=== PATIENT | male | born 1975 | race Caucasian/White ===

== ENCOUNTER 2017-01-10 10:17 | Emergency (ER) | payer MEDICAID ==
[2017-01-10 10:59] LABS: BASOPHIL % 0.2 % (0-2); PLATELET COUNT 316 x10^3mcL (130-400); RED CELL DISTRIBUTION WIDTH 13.7 % (11.5-14.5)
[2017-01-10 11:10] LABS: CALCIUM 8.9 mg/dL (8.5-10.1); CARBON DIOXIDE 28.8 mmol/L (21-32); CHLORIDE SERUM 106 mmol/L (98-107); CREATININE SERUM 1.1 mg/dL (0.7-1.3); GFR1 > 60 mL/min; GLUCOSE SERUM 104 mg/dL (74-106); POTASSIUM SERUM 4.3 mmol/L (3.5-5.1); SODIUM SERUM 141 mmol/L (136-145)
[2017-01-10 11:15] LABS: ALBUMIN 3.6 g/dL (3.4-5.0); ALKALINE PHOSPHATASE 54 U/L (46-116); ALT/SGPT 44 U/L (16-63); AMYLASE 37 U/L (25-115); AST/SGOT 27 U/L (15-37); BILIRUBIN TOTAL 0.28 mg/dL (0.20-1.00); LIPASE 197 IU/L (73-393); TOTAL PROTEIN, SERUM 7.1 g/dL (6.4-8.2)
[2017-01-10 12:43] VITALS: BP 106/60
== END 2017-01-10 12:43 | disposition home or self-care (01) ==
LOC: ED 10:17
PROVIDERS: Emergency Medicine
DX: K62.5 Hemorrhage of anus and rectum (principal); I10 Essential (primary) hypertension
CPT/HCPCS: 36415; 83880; J1885

== ENCOUNTER 2017-03-22 00:35 | Emergency (ER) | payer MEDICAID ==
[~2017-03-22] VITALS: Ht 172.7 cm; Wt 135.2 kg
[2017-03-22 00:41] VITALS: Ht 172.7 cm; Wt 135.2 kg
[2017-03-22 03:18] LABS: CALCIUM 9.4 mg/dL (8.5-10.1); CARBON DIOXIDE 26.3 mmol/L (21-32); CHLORIDE SERUM 106 mmol/L (98-107); CREATININE SERUM 0.9 mg/dL (0.7-1.3); GFR1 > 60 mL/min; GLUCOSE SERUM 116 mg/dL (74-106); POTASSIUM SERUM 3.8 mmol/L (3.5-5.1); SODIUM SERUM 142 mmol/L (136-145)
[2017-03-22 03:21] LABS: BASOPHIL % 1.1 % (0-2); PLATELET COUNT 324 x10^3mcL (130-400); RED CELL DISTRIBUTION WIDTH 11.9 % (11.5-14.5)
[2017-03-22 03:22] LABS: ALKALINE PHOSPHATASE 87 U/L (46-116); ALT/SGPT 65 U/L (16-63); AST/SGOT 23 U/L (15-37); BILIRUBIN TOTAL 0.26 mg/dL (0.20-1.00); LIPASE 167 IU/L (73-393); TOTAL PROTEIN, SERUM 6.8 g/dL (6.4-8.2)
[2017-03-22 03:23] LABS: ALBUMIN 3.2 g/dL (3.4-5.0)
[2017-03-22 06:58] VITALS: BP 125/83
[2017-03-22] MEDS ORDERED: ZESTRIL40 MG PO (21:29)
[2017-03-22] MEDS ORDERED: TENORMIN100 MG PO (21:29)
[2017-03-22] MEDS ORDERED: SEROQUEL25 MG PO (21:30)
[2017-03-22] MEDS ORDERED: VITAMIN B121000 MCG PO (21:30)
[2017-03-22] MEDS ORDERED: FENOFIBRATE54 M1 PO (21:30)
[2017-03-22] MEDS ORDERED: [UNRECOGNIZED DRUG - CODE] PO (21:30)
[2017-03-22] MEDS ORDERED: HEALTHY HEART1 EACH PO (21:31)
== END 2017-03-22 06:59 | disposition home or self-care (01) ==
LOC: ED 00:35
PROVIDERS: Emergency Medicine
DX: K80.80 Other cholelithiasis without obstruction (principal); I10 Essential (primary) hypertension; E78.00 Pure hypercholesterolemia, unspecified; Z87.19 Personal history of other diseases of the digestive system
CPT/HCPCS: 83880; J2270; J2405; Q0092

== ENCOUNTER 2017-03-22 15:17 | Inpatient (IN) | payer MEDICAID ==
[~2017-03-22] VITALS: Ht 172.7 cm; Wt 135.8 kg
[2017-03-22 16:26] LABS: BASOPHIL % 0.5 % (0-2); PLATELET COUNT 318 x10^3mcL (130-400); RED CELL DISTRIBUTION WIDTH 12.5 % (11.5-14.5)
[2017-03-22 16:46] LABS: microscopic required? NO
[2017-03-22 16:50] LABS: CARBON DIOXIDE 25.4 mmol/L (21-32); CHLORIDE SERUM 102 mmol/L (98-107); CREATININE SERUM 0.9 mg/dL (0.7-1.3); GFR1 > 60 mL/min; GLUCOSE SERUM 112 mg/dL (74-106); POTASSIUM SERUM 3.4 mmol/L (3.5-5.1); SODIUM SERUM 137 mmol/L (136-145)
[2017-03-22 16:55] LABS: ALBUMIN 3.4 g/dL (3.4-5.0); ALKALINE PHOSPHATASE 67 U/L (46-116); ALT/SGPT 48 U/L (16-63); AMYLASE 45 U/L (25-115); AST/SGOT 27 U/L (15-37); BILIRUBIN TOTAL 0.35 mg/dL (0.20-1.00); LIPASE 128 IU/L (73-393)
[2017-03-22 17:17] LABS: urine erythrocyte NEGATIVE (NEGATIVE)
[2017-03-22 17:28] LABS: AMPHETAMINE QUAL UR NONE DETECTED (NEG <=1000)
[2017-03-22 19:45] LABS: MAGNESIUM 1.6 mg/dL (1.8-2.4)
[2017-03-22 19:46] LABS: CHOLESTEROL/HDL RATIO 4.1
[2017-03-22 19:55] LABS: FREE T4 0.84 ng/dL (0.76-1.46)
[2017-03-22 19:56] LABS: FREE THYROXINE INDEX 1.6 ug/dL (1.4-4.5); T4(THYROXINE) 4.4 ug/dL (4.7-13.3)
[2017-03-22 20:09] VITALS: BP 165/107
[2017-03-22 20:10] LABS: T3 TOTAL 1.13 ng/mL
[2017-03-22] MEDS ORDERED: TENORMIN100 MG PO (21:29)
[2017-03-22] MEDS ORDERED: ZESTRIL40 MG PO (21:29)
[2017-03-22] MEDS ORDERED: SEROQUEL25 MG PO (21:30)
[2017-03-22] MEDS ORDERED: FENOFIBRATE54 M1 PO (21:30)
[2017-03-22] MEDS ORDERED: VITAMIN B121000 MCG PO (21:30)
[2017-03-22] MEDS ORDERED: [UNRECOGNIZED DRUG - CODE] PO (21:30)
[2017-03-22] MEDS ORDERED: HEALTHY HEART1 EACH PO (21:31)
[2017-03-23 00:14] VITALS: BP 135/89
[2017-03-23 06:02] VITALS: BP 122/71
[2017-03-23 07:40] LABS: CALCIUM 8.2 mg/dL (8.5-10.1); CARBON DIOXIDE 24.2 mmol/L (21-32); CHLORIDE SERUM 107 mmol/L (98-107); CREATININE SERUM 0.8 mg/dL (0.7-1.3); GFR1 > 60 mL/min; GLUCOSE SERUM 95 mg/dL (74-106); MAGNESIUM 2.1 mg/dL (1.8-2.4); PHOSPHOROUS 3.5 mg/dL (2.5-4.9); POTASSIUM SERUM 3.9 mmol/L (3.5-5.1); SODIUM SERUM 140 mmol/L (136-145)
[2017-03-23 07:43] LABS: BASOPHIL % 0.4 % (0-2); PLATELET COUNT 286 x10^3mcL (130-400); RED CELL DISTRIBUTION WIDTH 12.7 % (11.5-14.5)
[2017-03-23 09:22] VITALS: BP 132/81
[2017-03-23 13:20] VITALS: BP 147/87
[2017-03-23 15:37] VITALS: Ht 172.7 cm; Wt 135.8 kg
[2017-03-23 17:20] VITALS: BP 138/81
[2017-03-23 21:06] VITALS: BP 124/71
[2017-03-24 04:32] VITALS: BP 121/79
[2017-03-24 05:00] VITALS: BP 136/96
[2017-03-24 07:02] LABS: BASOPHIL % 0.3 % (0-2); PLATELET COUNT 335 x10^3mcL (130-400); RED CELL DISTRIBUTION WIDTH 12.8 % (11.5-14.5)
[2017-03-24 07:20] LABS: CALCIUM 8.8 mg/dL (8.5-10.1); CARBON DIOXIDE 25.9 mmol/L (21-32); CHLORIDE SERUM 106 mmol/L (98-107); CREATININE SERUM 0.9 mg/dL (0.7-1.3); GFR1 > 60 mL/min; GLUCOSE SERUM 92 mg/dL (74-106); POTASSIUM SERUM 4.2 mmol/L (3.5-5.1); SODIUM SERUM 141 mmol/L (136-145)
[2017-03-24 08:54] VITALS: BP 130/80
[2017-03-24 13:40] VITALS: BP 135/86
[2017-03-24 17:36] VITALS: BP 128/84
[2017-03-24 21:29] VITALS: BP 117/66
[2017-03-25 05:21] VITALS: BP 120/71
[2017-03-25 07:05] LABS: CALCIUM 9.1 mg/dL (8.5-10.1); CARBON DIOXIDE 28.3 mmol/L (21-32); CHLORIDE SERUM 103 mmol/L (98-107); CREATININE SERUM 1.1 mg/dL (0.7-1.3); GFR1 > 60 mL/min; GLUCOSE SERUM 98 mg/dL (74-106); POTASSIUM SERUM 4.2 mmol/L (3.5-5.1); SODIUM SERUM 139 mmol/L (136-145)
[2017-03-25 07:47] LABS: BASOPHIL % 0.4 % (0-2); PLATELET COUNT 341 x10^3mcL (130-400); RED CELL DISTRIBUTION WIDTH 12.8 % (11.5-14.5)
[2017-03-25 10:12] VITALS: BP 131/77
[2017-03-25] MEDS ORDERED: VANCOCIN125 MG PO (13:04)
[2017-03-25] MEDS ORDERED: FLA500 PO ×2 (13:04→14:09)
[2017-03-25] MEDS ORDERED: ELA10 PO (13:18)
[2017-03-25] MEDS ORDERED: LAC PO (13:19)
[2017-03-25] MEDS ORDERED: LASIX20 MG PO (13:19)
[2017-03-25] MEDS ORDERED: PEPTO-BISM262 MG/15 PO (13:22)
== END 2017-03-25 15:37 | disposition home or self-care (01) | DRG 248 ==
LOC: ED 15:17 → DU 18:04
PROVIDERS: Emergency Medicine; Family Medicine; Student in an Organized Health Care Education/Training Program
DX: A04.72 Enterocolitis due to Clostridium difficile, not specified as recurrent (principal); Z68.41 Body mass index [BMI] 40.0-44.9, adult; K76.0 Fatty (change of) liver, not elsewhere classified; E83.42 Hypomagnesemia; E66.01 Morbid (severe) obesity due to excess calories; E87.6 Hypokalemia; I89.0 Lymphedema, not elsewhere classified; I10 Essential (primary) hypertension; F32.9 Major depressive disorder, single episode, unspecified; E78.1 Pure hyperglyceridemia; Z59.0 Homelessness
CPT/HCPCS: 83880; 84439; 87046; 87046-59; G0480; J0295; J0360; J0500; J1200; J1610; J1885; J1940; J2250; J2310; J2405; J2550; J3010; J3480; J3490; J7030; Q0092

== ENCOUNTER 2017-06-13 23:09 | Inpatient (IN) | payer MEDICAID ==
[~2017-06-13] VITALS: Ht 172.7 cm; Wt 139.9 kg
[~2017-06-13 23:09] MED LIST: ELA10 PO; FENOFIBRATE54 M1 PO; FLA500 PO; HEALTHY HEART1 EACH PO; LAC PO; LASIX20 MG PO; PEPTO-BISM262 MG/15 PO; SEROQUEL25 MG PO; TENORMIN100 MG PO; VANCOCIN125 MG PO; VITAMIN B121000 MCG PO; ZESTRIL40 MG PO; [UNRECOGNIZED DRUG - CODE] PO
[2017-06-14] MEDS ORDERED: VITAMIN B121000 MCG PO (00:11)
[2017-06-14] MEDS ORDERED: PEPCID40 MG PO (00:12)
[2017-06-14] MEDS ORDERED: ZOLOFT50 MG PO (00:12)
[2017-06-14 00:28] LABS: BASOPHIL % 0.5 % (0-2); PLATELET COUNT 341 x10^3mcL (130-400); RED CELL DISTRIBUTION WIDTH 13.5 % (11.5-14.5)
[2017-06-14 01:11] LABS: CALCIUM 9.2 mg/dL (8.5-10.1); CARBON DIOXIDE 27.9 mmol/L (21-32); CHLORIDE SERUM 101 mmol/L (98-107); CREATININE SERUM 1.1 mg/dL (0.7-1.3); GFR1 > 60 mL/min; GLUCOSE SERUM 141 mg/dL (74-106); POTASSIUM SERUM 3.1 mmol/L (3.5-5.1); SODIUM SERUM 134 mmol/L (136-145)
[2017-06-14 01:15] LABS: ALBUMIN 3.7 g/dL (3.4-5.0); ALKALINE PHOSPHATASE 80 U/L (46-116); ALT/SGPT 59 U/L (16-63); AST/SGOT 32 U/L (15-37); BILIRUBIN TOTAL 0.4 mg/dL (0.20-1.00); TOTAL PROTEIN, SERUM 7.9 g/dL (6.4-8.2)
[2017-06-14 03:06] VITALS: BP 121/74
[2017-06-14 04:16] LABS: CHOLESTEROL/HDL RATIO 4.5; MAGNESIUM 1.8 mg/dL (1.8-2.4); PHOSPHOROUS 4.1 mg/dL (2.5-4.9)
[2017-06-14 05:38] VITALS: BP 127/63
[2017-06-14 06:55] LABS: CALCIUM 9.3 mg/dL (8.5-10.1); CARBON DIOXIDE 28.7 mmol/L (21-32); CHLORIDE SERUM 100 mmol/L (98-107); CREATININE SERUM 1.2 mg/dL (0.7-1.3); GFR1 > 60 mL/min; GLUCOSE SERUM 109 mg/dL (74-106); POTASSIUM SERUM 3.5 mmol/L (3.5-5.1); SODIUM SERUM 137 mmol/L (136-145)
[2017-06-14 07:26] LABS: FREE T4 0.96 ng/dL (0.76-1.46); FREE THYROXINE INDEX 2.2 ug/dL (1.4-4.5); T4(THYROXINE) 5.8 ug/dL (4.7-13.3)
[2017-06-14 07:50] LABS: BASOPHIL % 0.5 % (0-2); PLATELET COUNT 313 x10^3mcL (130-400); RED CELL DISTRIBUTION WIDTH 13.2 % (11.5-14.5)
[2017-06-14 07:55] LABS: T3 TOTAL 1.07 ng/mL
[2017-06-14 09:29] VITALS: BP 124/92
[2017-06-14 13:07] VITALS: BP 152/103
[2017-06-14 16:02] LABS: microscopic required? NO
[2017-06-14 16:09] LABS: UA SPECIFIC GRAVITY >=1.030 (1.005-1.035); urine erythrocyte NEGATIVE (NEGATIVE)
[2017-06-14 16:20] LABS: AMPHETAMINE QUAL UR NONE DETECTED (NEG <=1000)
[2017-06-14 18:00] VITALS: BP 129/79
[2017-06-14 20:51] VITALS: BP 124/60
[2017-06-15 05:36] VITALS: BP 128/85
[2017-06-15 06:42] LABS: BASOPHIL % 0.4 % (0-2); PLATELET COUNT 280 x10^3mcL (130-400); RED CELL DISTRIBUTION WIDTH 13.4 % (11.5-14.5)
[2017-06-15 07:01] LABS: CALCIUM 8.3 mg/dL (8.5-10.1); CARBON DIOXIDE 27.7 mmol/L (21-32); CHLORIDE SERUM 102 mmol/L (98-107); CREATININE SERUM 0.9 mg/dL (0.7-1.3); GFR1 > 60 mL/min; GLUCOSE SERUM 99 mg/dL (74-106); POTASSIUM SERUM 3.7 mmol/L (3.5-5.1); SODIUM SERUM 137 mmol/L (136-145)
[2017-06-15 09:13] VITALS: BP 137/90
[2017-06-15] MEDS ORDERED: PRI20 PO ×2 (10:08→10:44)
[2017-06-15] MEDS ORDERED: CAR1 PO (10:44)
[2017-06-15] MEDS ORDERED: FLA500 PO (11:30)
[2017-06-15] MEDS ORDERED: LAC PO (11:31)
[2017-06-15 12:26] VITALS: BP 137/90
[2017-06-15 12:29] VITALS: BP 140/88
== END 2017-06-15 14:06 | disposition home or self-care (01) | DRG 243 ==
LOC: ED 23:09 → DU 06-14 01:40
PROVIDERS: Emergency Medicine; Student in an Organized Health Care Education/Training Program
DX: K21.9 Gastro-esophageal reflux disease without esophagitis (principal); I50.43 Acute on chronic combined systolic (congestive) and diastolic (congestive) heart failure; K57.31 Diverticulosis of large intestine without perforation or abscess with bleeding; Z68.42 Body mass index [BMI] 45.0-49.9, adult; K76.0 Fatty (change of) liver, not elsewhere classified; K80.20 Calculus of gallbladder without cholecystitis without obstruction; M79.661 Pain in right lower leg; G47.30 Sleep apnea, unspecified; E87.6 Hypokalemia; I10 Essential (primary) hypertension; E78.5 Hyperlipidemia, unspecified; F32.9 Major depressive disorder, single episode, unspecified; E66.9 Obesity, unspecified
CPT/HCPCS: 83880; 84439; J1885; J3480; J3490; J7030; Q0092

== ENCOUNTER 2017-09-18 13:44 | Inpatient (IN) | payer MEDICAID ==
[~2017-09-18] VITALS: Ht 172.7 cm; Wt 154.2 kg
[~2017-09-18 13:44] MED LIST changes: +ATORVASTATIN CA10 M1 PO; +BEN10 PO; +CAR1 PO; +COZAAR25 M1 PO; +LOSARTAN POTASS1 TA6; +PEPCID20 MG PO; +PEPCID40 MG PO; +PRI20 PO; +PROTONIX20 MG PO; +ZOLOFT50 MG PO
[2017-09-18 15:02] LABS: PLATELET COUNT 276 x10^3mcL (130-400); RED CELL DISTRIBUTION WIDTH 13.4 % (11.5-14.5)
[2017-09-18 15:03] LABS: CALCIUM 9.1 mg/dL (8.5-10.1); CARBON DIOXIDE 24.4 mmol/L (21-32); CHLORIDE SERUM 100 mmol/L (98-107); GFR1 > 60 mL/min; GLUCOSE SERUM 117 mg/dL (74-106); POTASSIUM SERUM 3.2 mmol/L (3.5-5.1); SODIUM SERUM 134 mmol/L (136-145)
[2017-09-18 15:18] LABS: ALBUMIN 3.5 g/dL (3.4-5.0); ALKALINE PHOSPHATASE 75 U/L (46-116); ALT/SGPT 78 U/L (16-63); AST/SGOT 47 U/L (15-37); BILIRUBIN TOTAL 0.8 mg/dL (0.20-1.00)
[2017-09-18 15:39] LABS: CK-MB 1.2 ng/mL (0-3.6)
[2017-09-18 15:57] LABS: BAND NEUTROPHIL 3 % (0-10); MONOCYTE 5 % (0-7); SEGMENTED NEUTROPHILS 88 % (37-75)
[2017-09-18 15:58] LABS: BASOPHIL 0 % (0-2)
[2017-09-18 15:59] LABS: rbc morphology (normal/abnorm) ABNORMAL (NORMAL)
[2017-09-18 16:35] LABS: CHOLESTEROL/HDL RATIO 3.3; MAGNESIUM 1.4 mg/dL (1.8-2.4); PHOSPHOROUS 4.4 mg/dL (2.5-4.9)
[2017-09-18 16:44] LABS: T3 TOTAL 0.81 ng/mL
[2017-09-18 16:55] VITALS: BP 145/72
[2017-09-18 17:34] VITALS: BP 145/72
[2017-09-18 18:06] LABS: FREE T4 0.81 ng/dL (0.76-1.46); FREE THYROXINE INDEX 1.6 ug/dL (1.4-4.5); T4(THYROXINE) 4.6 ug/dL (4.7-13.3)
[2017-09-18 21:08] VITALS: BP 160/93
[2017-09-18 22:15] VITALS: BP 149/91
[2017-09-18 22:50] LABS: UA SPECIFIC GRAVITY >=1.030 (1.005-1.035); microscopic required? YES; urine erythrocyte NEGATIVE (NEGATIVE)
[2017-09-18 22:55] LABS: AMPHETAMINE QUAL UR NONE DETECTED (See below)
[2017-09-19] VITALS (9 sets, daily range): BP systolic 120–158; BP diastolic 71–96
[2017-09-19 06:29] LABS: BASOPHIL % 0.5 % (0-2); PLATELET COUNT 228 x10^3mcL (130-400); RED CELL DISTRIBUTION WIDTH 13.3 % (11.5-14.5)
[2017-09-19 06:57] LABS: AMYLASE 25 U/L (25-115); CALCIUM 8.8 mg/dL (8.5-10.1); CARBON DIOXIDE 25.3 mmol/L (21-32); CHLORIDE SERUM 100 mmol/L (98-107); CREATININE SERUM 1.1 mg/dL (0.7-1.3); GFR1 > 60 mL/min; GLUCOSE SERUM 127 mg/dL (74-106); MAGNESIUM 1.6 mg/dL (1.8-2.4); PHOSPHOROUS 2.7 mg/dL (2.5-4.9); POTASSIUM SERUM 3.5 mmol/L (3.5-5.1); SODIUM SERUM 136 mmol/L (136-145)
[2017-09-19 18:20] LABS: CALCIUM 9.1 mg/dL (8.5-10.1); CARBON DIOXIDE 24.4 mmol/L (21-32); CHLORIDE SERUM 100 mmol/L (98-107); CREATININE SERUM 1.2 mg/dL (0.7-1.3); GFR1 > 60 mL/min; GLUCOSE SERUM 125 mg/dL (74-106); POTASSIUM SERUM 4.1 mmol/L (3.5-5.1); SODIUM SERUM 136 mmol/L (136-145)
[2017-09-19 18:27] LABS: RED CELL DISTRIBUTION WIDTH 13.6 % (11.5-14.5)
[2017-09-19 18:36] LABS: PLATELET COUNT 222 x10^3mcL (130-400)
[2017-09-19 18:40] LABS: BASOPHIL % 0.3 % (0-2)
[2017-09-20 05:24] VITALS: BP 110/67
[2017-09-20 09:34] VITALS: BP 120/82
[2017-09-20 14:00] VITALS: BP 129/88
[2017-09-20 16:40] VITALS: BP 146/90
[2017-09-20 21:45] VITALS: BP 143/84
[2017-09-20 21:52] VITALS: Ht 172.7 cm; Wt 154.2 kg
[2017-09-21 05:52] VITALS: BP 136/95
[2017-09-21 06:28] LABS: BASOPHIL % 0.4 % (0-2); PLATELET COUNT 271 x10^3mcL (130-400); RED CELL DISTRIBUTION WIDTH 13.4 % (11.5-14.5)
[2017-09-21 06:50] LABS: ALBUMIN 2.7 g/dL (3.4-5.0); ALKALINE PHOSPHATASE 69 U/L (46-116); ALT/SGPT 41 U/L (16-63); AST/SGOT 28 U/L (15-37); BILIRUBIN TOTAL 0.69 mg/dL (0.20-1.00); CALCIUM 9.1 mg/dL (8.5-10.1); CARBON DIOXIDE 30.3 mmol/L (21-32); CHLORIDE SERUM 100 mmol/L (98-107); CREATININE SERUM 1.1 mg/dL (0.7-1.3); GFR1 > 60 mL/min; GLUCOSE SERUM 109 mg/dL (74-106); POTASSIUM SERUM 3.8 mmol/L (3.5-5.1); SODIUM SERUM 138 mmol/L (136-145); TOTAL PROTEIN, SERUM 7.7 g/dL (6.4-8.2)
[2017-09-21 08:17] VITALS: BP 140/94
[2017-09-21 08:57] VITALS: BP 140/94
[2017-09-21] MEDS ORDERED: LIO10 PO (09:56)
[2017-09-21] MEDS ORDERED: COZ50 PO (09:56)
[2017-09-21] MEDS ORDERED: BACTRIM DS1 TAB PO (09:57)
[2017-09-21] MEDS ORDERED: LAC PO (09:57)
[2017-09-21 10:23] VITALS: BP 140/94
[2017-09-21 13:01] VITALS: BP 109/69
== END 2017-09-21 16:13 | disposition home or self-care (01) | DRG 720 ==
LOC: ED 13:44 → DU 15:40
PROVIDERS: Emergency Medicine; Family Medicine
DX: A41.9 Sepsis, unspecified organism (principal); E43 Unspecified severe protein-calorie malnutrition; I11.0 Hypertensive heart disease with heart failure; I50.9 Heart failure, unspecified; E66.01 Morbid (severe) obesity due to excess calories; E83.42 Hypomagnesemia; Z68.42 Body mass index [BMI] 45.0-49.9, adult; L03.115 Cellulitis of right lower limb; B95.62 Methicillin resistant Staphylococcus aureus infection as the cause of diseases classified elsewhere; E87.6 Hypokalemia; K57.90 Diverticulosis of intestine, part unspecified, without perforation or abscess without bleeding; D16.31 Benign neoplasm of short bones of right lower limb; I87.8 Other specified disorders of veins; G47.30 Sleep apnea, unspecified; K46.9 Unspecified abdominal hernia without obstruction or gangrene; E78.5 Hyperlipidemia, unspecified; R73.03 Prediabetes; F32.9 Major depressive disorder, single episode, unspecified
CPT/HCPCS: 82962; 83880; 84439; J1644; J1885; J2001; J2270; J2405; J2543; J3370; J3475; J3490; J7030; Q0092; Q9967

== ENCOUNTER 2018-02-01 19:28 | Emergency (ER) | payer MEDICAID ==
[~2018-02-01] VITALS: Ht 172.7 cm; Wt 144.2 kg
[~2018-02-01 19:28] MED LIST changes: +BACTRIM DS1 TAB PO; +COZ50 PO; +LIO10 PO
[2018-02-01 19:35] VITALS: Ht 172.7 cm; Wt 144.2 kg
[2018-02-01 20:28] LABS: BASOPHIL % 0.6 % (0-2); PLATELET COUNT 290 x10^3mcL (130-400); RED CELL DISTRIBUTION WIDTH 13.8 % (11.5-14.5)
[2018-02-01 20:42] LABS: CALCIUM 8.6 mg/dL (8.5-10.1); CARBON DIOXIDE 25.6 mmol/L (21-32); CHLORIDE SERUM 105 mmol/L (98-107); CREATININE SERUM 0.8 mg/dL (0.7-1.3); GFR1 > 60 mL/min; GLUCOSE SERUM 95 mg/dL (74-106); POTASSIUM SERUM 3.7 mmol/L (3.5-5.1); SODIUM SERUM 142 mmol/L (136-145)
[2018-02-01 20:46] LABS: ALBUMIN 3.5 g/dL (3.4-5.0); ALKALINE PHOSPHATASE 103 U/L (46-116); ALT/SGPT 66 U/L (16-63); AST/SGOT 44 U/L (15-37); BILIRUBIN TOTAL 0.33 mg/dL (0.20-1.00); LIPASE 149 IU/L (73-393); TOTAL PROTEIN, SERUM 7.8 g/dL (6.4-8.2)
[2018-02-01 21:22] LABS: microscopic required? NO
[2018-02-01 21:36] LABS: UA SPECIFIC GRAVITY 1.025 (1.005-1.035); urine erythrocyte NEGATIVE (NEGATIVE)
[2018-02-01 21:51] LABS: AMPHETAMINE QUAL UR NONE DETECTED (See below)
[2018-02-01 23:44] VITALS: BP 139/94
== END 2018-02-01 23:44 | disposition home or self-care (01) ==
LOC: ED 19:28
PROVIDERS: Emergency Medicine
DX: K62.5 Hemorrhage of anus and rectum (principal); R10.84 Generalized abdominal pain; K92.1 Melena; K57.90 Diverticulosis of intestine, part unspecified, without perforation or abscess without bleeding; M79.10 Myalgia, unspecified site; R19.7 Diarrhea, unspecified; R50.9 Fever, unspecified; I11.0 Hypertensive heart disease with heart failure; I50.9 Heart failure, unspecified; F32.9 Major depressive disorder, single episode, unspecified; E78.00 Pure hypercholesterolemia, unspecified; Z90.49 Acquired absence of other specified parts of digestive tract; Z91.011 Allergy to milk products
CPT/HCPCS: J2270; J2405; J7030